=== PATIENT | female | born 1985 | race Hispanic/Latino ===

== ENCOUNTER 2017-06-30 09:25 | Emergency (ER) | payer OTHER ==
[~2017-06-30 09:25] MED LIST: CIPR-245 PO; FAMO-136 PO; METR500T PO; TYL3 PO
[2017-06-30] MEDS ORDERED: AMOXICILLIN/POTASSIUM CLAV 875-125 TABLET PO ONE (10:40)
== END 2017-06-30 10:48 | disposition home or self-care (01) ==
LOC: EDH 09:25
DX: J02.0 Streptococcal pharyngitis (principal)
CPT/HCPCS: 81025; 87880

== ENCOUNTER 2018-04-23 07:29 | Emergency (ER) | payer SELFPAY ==
[2018-04-23 08:26] LABS: RAPID GROUP A STREP NEGATIVE (NEGATIVE)
== END 2018-04-23 09:13 | disposition home or self-care (01) ==
LOC: EDH 07:29
DX: J02.9 Acute pharyngitis, unspecified (principal)
CPT/HCPCS: 87804; 87880

== ENCOUNTER 2018-05-10 15:40 | Emergency (ER) | payer SELFPAY ==
[2018-05-10 17:08] LABS: BASOPHILS % (AUTO) 0.6 % (0.0-5.0); EOSINOPHILS % (AUTO) 1.7 % (0.0-8.0); HEMATOCRIT 42.3 % (36-48); MEAN CORPUSCULAR HEMOGLOBIN 30.2 pg (27.0-33.0); MEAN CORPUSCULAR VOLUME 88.7 fL (79-99); NEUTROPHILS % (AUTO) 63.7 % (40.0-77.0); PLATELET COUNT (AUTO) 245 K/uL (130-400); RED BLOOD CELL COUNT(AUTO) 4.77 MIL/uL (4.00-5.50); RED CELL DISTRIBUTION WIDTH 13.2 % (11.0-15.5); WHITE BLOOD COUNT (AUTO) 7.3 K/uL (4.8-10.8)
[2018-05-10 17:18] LABS: CREATININE 0.8 mg/dL (0.5-1.5); POTASSIUM 3.3 mmol/L (3.5-5.1)
[2018-05-10 17:25] LABS: ALBUMIN 3.8 g/dL (3.5-5.0); BILIRUBIN,TOTAL 0.4 mg/dL (0.2-1.0); MAGNESIUM 1.8 mg/dL (1.80-2.40); TOTAL PROTEIN, SERUM 8.1 g/dL (6.0-8.3)
[2018-05-10] MEDS ORDERED: MAGNESIUM OXIDE 400 MG TABLET PO ONE (17:38)
[2018-05-10] MEDS ORDERED: POTASSIUM CHLORIDE 20 MEQ ERTAB PO ONE (17:38)
== END 2018-05-10 18:24 | disposition home or self-care (01) ==
LOC: EDH 15:40
DX: E87.6 Hypokalemia (principal); F41.9 Anxiety disorder, unspecified; J45.909 Unspecified asthma, uncomplicated
CPT/HCPCS: 36415; 80053; 83735; 85025; 93005